=== PATIENT | female | born 1965 | race Caucasian/White ===

== ENCOUNTER 2018-10-07 08:24 | Emergency (ER) | payer MEDICARE ==
--- NOTE | 2018-10-07 09:52 | XRAY Report ---
Reason: dorsal pain 2-3 Procedure Date: 10/07/2018 Accession Number: [id number] / [id number] Procedure: XR - Foot 3 View LT CPT Code: FULL RESULT: EXAM: LEFT FOOT RADIOGRAPHY EXAM DATE: 10/07/2018 08:57 AM. CLINICAL HISTORY: Dorsal pain second and third metatarsals. COMPARISON: None. TECHNIQUE: 3 views. FINDINGS: Bones: Nondisplaced transverse fracture of the distal third diaphysis of the second metatarsal. Subtle nondisplaced fracture of the medial first metatarsal head extending into degenerated joint space, without apparent extension to the proximal cortex. No additional acute fractures appreciated. Joints: Moderate to severe asymmetric degenerative changes of the first MTP joint with circumferential productive osteophyte and flattened appearance to the first metatarsal head. Soft Tissues: Dorsal soft tissue swelling overlying the fractures. IMPRESSION: Acute fractures of the first distal metatarsal metaphysis and second metatarsal diaphysis as described. RADIA
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
[2018-10-07 12:40] VITALS: BP 128/76
== END 2018-10-07 12:50 | disposition home or self-care (01) ==
LOC: ED 08:24
DX: S92.312A Displaced fracture of first metatarsal bone, left foot, initial encounter for closed fracture (principal); S92.322A Displaced fracture of second metatarsal bone, left foot, initial encounter for closed fracture; X50.1XXA Overexertion from prolonged static or awkward postures, initial encounter; Y93.89 Activity, other specified; Y92.410 Unspecified street and highway as the place of occurrence of the external cause; Z59.0 Homelessness; F17.200 Nicotine dependence, unspecified, uncomplicated
CPT/HCPCS: 29515; 99282